=== PATIENT | female | born 1995 | race Caucasian/White ===

== ENCOUNTER 2016-11-26 05:45 | Day surgery (SDC) | payer BC ==
[~2016-11-26] VITALS: Ht 165.1 cm; Wt 85.7 kg
[2016-11-26] MEDS ORDERED: fentaNYL CITRATE 250 MCG/5 ML AMP IV ONE (07:11)
[2016-11-26] MEDS ORDERED: MIDAZOLAM HCL 5 MG/5 ML VIAL IVP ONE (07:11)
[2016-11-26] MEDS ORDERED: LR 1,000 ML IV.SOLN IV ONE (07:11)
[2016-11-26] MEDS ORDERED: METOCLOPRAMIDE HCL 10 MG/2 ML VIAL IVP ONE (07:11)
[2016-11-26] MEDS ORDERED: SEVOFLURANE 15 MIN GAS INH ONE (07:11)
[2016-11-26] MEDS ORDERED: NS 1000 ML BAG IV ONE (07:11)
[2016-11-26] MEDS ORDERED: PROPOFOL 200MG/ 20ML VIAL (DIPRIVAN) IV ONE (07:11)
[2016-11-26] MEDS ORDERED: DEXAMETHASONE SOD PHOSPHATE 4 MG/ML VIAL IVP ONE (07:11)
[2016-11-26] MEDS ORDERED: KETOROLAC TROMETHAMINE 30 MG VIAL IVP ONE (07:11)
[2016-11-26] MEDS ORDERED: MEPERIDINE HCL/PF 100 MG/ML AMP IM ONE (07:11)
[2016-11-26] MEDS ORDERED: LR 1,000 ML IV ONE (08:14)
[2016-11-26] MEDS ORDERED: ePHEDrine sulfate 50 MG/ML VIAL IVP PRN (08:15)
[2016-11-26] MEDS ORDERED: DIPHENHYDRAMINE INJ 50 MG/ML VIAL IVP PRN (08:15)
[2016-11-26] MEDS ORDERED: ONDANSETRON HCL 4 MG/2 ML VIAL IVP PRN ×3 (08:15→10:00)
[2016-11-26] MEDS ORDERED: NALBUPHINE HCL 10 MG/ML AMP IVP PRN (08:15)
[2016-11-26] MEDS ORDERED: fentaNYL CITRATE/PF 100 MCG/2 ML AMP IVP PRN (08:15)
[2016-11-26] MEDS ORDERED: NALOXONE HCL 0.4 MG/ML AMP (NARCAN) IVP PRN (08:15)
[2016-11-26] MEDS ORDERED: GLYCOPYRROLATE 0.2 MG/ML VIAL ONE (09:38)
[2016-11-26] MEDS ORDERED: OXYCODONE/ACETAMINOPHEN 5-325 TABLET PO PRN ×2 (10:00)
[2016-11-26] MEDS ORDERED: PROMETHAZINE HCL 25 MG/ML AMP IM PRN ×2 (10:00)
[2016-11-26] MEDS ORDERED: fentaNYL CITRATE/PF 100 MCG/2 ML AMP ONE (10:19)
[2016-11-26] MEDS ORDERED: OXYCODONE/ACETAMINOPHEN 5-325 TABLET ONE (10:56)
[2016-11-26 11:13] VITALS: BP_SYST 131
== END 2016-11-26 11:30 | disposition home or self-care (01) ==
LOC: SMU 05:45 → SDS 05:45
PROVIDERS: ATTEND Obstetrics & Gynecology
DX: D27.0 Benign neoplasm of right ovary (principal); N83.8 Other noninflammatory disorders of ovary, fallopian tube and broad ligament
CPT/HCPCS: 36415; 58662; 86886; 86900; 86901; 88304; 88307; J1100; J1885; J2175; J2250; J2704; J2765; J3010 ×2; J7030; J7120; J3490